=== PATIENT | female | born 1985 | race Caucasian/White ===

== ENCOUNTER 2018-02-17 03:24 | Inpatient (IN) | payer OTHER ==
[2018-02-17] MEDS ORDERED: OLIVE OIL 118 ML BTL MISC PRN (03:36)
[2018-02-17] MEDS ORDERED: AMPICILLIN SODIUM 2 GM in STERILE WATER INJ 25 ML IV ONE (03:36)
[2018-02-17] MEDS ORDERED: LIDOCAINE 1% 300 MG/30 ML SDV SC PRN (03:36)
[2018-02-17] MEDS ORDERED: OXYTOCIN/NORMAL SALINE 1,000 ML IV PRN (03:36)
[2018-02-17] MEDS ORDERED: MISOPROSTOL 200 MCG TAB PR PRN (03:36)
[2018-02-17] MEDS ORDERED: EPSOM SALT 454 GM TP PRN (03:36)
[2018-02-17] MEDS ORDERED: TERBUTALINE SULFATE 1 MG/ML VIAL IV PRN (03:36)
[2018-02-17] MEDS ORDERED: LR 1,000 ML IV PRN (03:36)
[2018-02-17] MEDS ORDERED: AMMONIA AROMATIC 1 EACH AMP IH ONE (03:38)
[2018-02-17] MEDS ORDERED: TERBUTALINE SULFATE 1 MG/ML VIAL ONE (03:38)
[2018-02-17] MEDS ORDERED: LIDOCAINE 1% 300 MG/30 ML SDV ONE (03:38)
[2018-02-17] MEDS ORDERED: MISOPROSTOL 200 MCG TAB ONE (03:38)
[2018-02-17] MEDS ORDERED: OLIVE OIL 118 ML BTL ONE (03:38)
[2018-02-17] MEDS ORDERED: OXYTOCIN 10 UNIT/ML VIAL ONE (03:38)
[2018-02-17 04:12] LABS: PLATELET COUNT 207 10^3/uL (150-400)
--- NOTE | 2018-02-17 04:14 | PDGENHP ---
History and Physical - Chief Complaint labor contractions - History of Present Illness 32 at 40w3d by LMP c/w 8 wk US started having contractions around 2100, after having Conner bulb placed in the office yesterday afternoon. Elective induction. course uncomplicated. Good FM, no LOF, some bloody show. NO ssx PIH. care with [facility] since 8 weeks. Had epidural with her first, labored for 18 hours, pushed for 20 min. Thinks this baby might be a little bit bigger. Is considering an epidural. labs: GBS POS O pos Ab scre neg 12.5/34.5 plt 191 RPR-NR Rub Imm HebsAG neg HIV neg Genetic carrier Family Prep screen neg Innatal neg pap neg GC neg 28 wk: 11.8/33.2 1 hr GTT 111 History Information - Allergies/Home Medication List Allergies/Adverse Reactions: No Known Allergies Allergy (Unverified 09/07/15 17:54) Home Medications: Vit27&Calcium/Iron/FA [] 1 each PO DAILY 09/07/15 [Last Taken 09/06/15] I have personally reviewed and updated: family history, medical history, social history, surgical history Past Medical History: pp depression. headaches - Surgical History Additional surgical history: LEEP 2004. R knee surgery 2005. wisdom teeth - Family History Additional family history: mother from ovarian cancer at 64 - pt had genetic risk testing done and was negative - Social History Smoking Status: Never smoked Alcohol Use: None Drug Use: None Additional social history: - [place], in attendance Review of Systems Review of Systems: ROS: 10pt was reviewed & negative except for what was stated in HPI & below Physical Exam Physical Exam: Gen - pleasant, NAD when not michela CV -RRR chest - CTAB abd - gravid ext - NT, trace edema SVE per RN - 7/50/-1 FHR - 130, reactive, Cat 1, mod variability, + accels toco - q 2-4 min 36.7 119 108/72 Constitutional: no apparent distress Ears, Nose, Mouth, Throat: moist mucous membranes Cardiovascular: regular rate and rhythym Respiratory: no respiratory distress, no rales or rhonchi Skin: warm, normal color Musculoskeletal: full muscle strength Neurologic: sensation intact bilaterally Psychiatric: interacting appropriately Assessment & Plan Assessment: 32 yo at 40w3d in active labor - Conner bulb for elective induction now out. GBS positive Rub Imm O pos Plan - Admit, Amp for GBS positive, expectant mgmt, anticipate vag delivery, OK for epidural as desired. Tricia Clark MD, FACOG
--- NOTE | 2018-02-17 05:09 | OBPROG ---
Labor Progress Note Assessment/Plan: Assessment:32 yo multip in active labor - AROM performed GBS pos - first dose of amp in at 0400. Plan:Expectant mgmt - going to try nitrous now for pain control Tricia Clark MD, FACOG 02/17/18 05:05 Subjective/Intrapartum Course: Was in the tub, desires AROM. 02/17/18 05:06 Objective: 02/17/18 03:45 Patient ABO/Rh O POSITIVE 02/17/18 03:45 SVE - 7-8/80/-2 AROM performed - clear - SVE Dilation (cm): 8 Effacement (%): 80 Station: -2 Membranes: AROM Amniotic Fluid Color: Clear - Contraction Pattern Assessment Current Contraction Pattern: Regular - Procedures Non-surgical Procedures: Amniotomy - AP Antepartum Course: 02/17/18 05:10 Uncomplicated course. Oxytocin Orders Assessment - Pre-Induction/Augmentation Assessment Gestational Age: 40 week(s) and 3 day(s) ICD10 Worksheet Patient Problems: Problems Problem Status Onset Elective induction of labor planned Acute (spontaneous vaginal delivery) Acute
[2018-02-17] MEDS ORDERED: fentaNYL 200 MCG, BUPIVACAINE 0.5% 20 ML in NS 100 ML EP SCH (05:30)
[2018-02-17] MEDS ORDERED: fentaNYL 100 MCG/2 ML INJ ONE (05:39)
[2018-02-17] MEDS ORDERED: PHENYLEPHRINE HCL 100 MCG/ML SYR ONE (05:40)
[2018-02-17] MEDS ORDERED: BUPIVACAINE 0.25% 30 ML SDV ONE (05:40)
--- NOTE | 2018-02-17 06:20 | OBPROG ---
Labor Progress Note Assessment/Plan: Assessment:32 yo multip in active labor - AROM performed GBS pos - first dose of amp in at 0400. Plan:Expectant mgmt - going to try nitrous now for pain control Tricia Clark MD, FACOG 02/17/18 05:05 02/17/18 06:16 A/P: 32 yo , active labor, s/p AROM, GBS pos- first dose amp at 0400. Now getting epidural -some difficulty getting her comfortable on both sides. Anesthesia - Dr. An currently at bedside. Tricia Clark MD, FACOG Subjective/Intrapartum Course: Was in the tub, desires AROM. 02/17/18 05:06 02/17/18 06:18 After AROM - requested epidural. Objective: 02/17/18 03:45 Patient ABO/Rh O POSITIVE 02/17/18 03:45 - SVE Membranes: AROM Amniotic Fluid Color: Clear - Contraction Pattern Assessment Current Contraction Pattern: Regular - FHR Assessment Bruce FHR (bpm): 130 FHR Pattern Variability: Moderate FHR Category: 1 - Procedures Non-surgical Procedures: Amniotomy - AP Antepartum Course: 02/17/18 05:10 Uncomplicated course. Oxytocin Orders Assessment - Pre-Induction/Augmentation Assessment Gestational Age: 40 week(s) and 3 day(s) ICD10 Worksheet Patient Problems: Problems Problem Status Onset Elective induction of labor planned Acute (spontaneous vaginal delivery) Acute
--- NOTE | 2018-02-17 06:26 | PREANESOB ---
Obstetric Pre-Anesthesia Info - General Info Proposed Procedure: PCEA : 2 Para: 1 RACHELLE: 02/14/18 Gestational Age: 40 week(s) and 3 day(s) - Labor Status Cervical Dilation per last OB SVE: 8 Station per last OB SVE: -2 Amniotic Fluid Color: Clear Anesthesia Allergies/Adverse Reactions: Allergy/AdvReac Type Severity Reaction Status Date / Time No Known Allergies Allergy Unverified 09/07/15 17:54 Home Medications: Medication Instructions Recorded Vit27&Calcium/Iron/FA 1 each PO DAILY 09/07/15 [] Docusate Sodium [Colace 100 MG (*)] 100 mg PO BID PRN #0 cap 09/11/15 HYDROmorphone HCL [Dilaudid 2 mg 2 mg PO Q4 PRN #14 tab 09/11/15 (*)] Ibuprofen [Motrin (*)] 600 mg PO Q6 PRN #0 tab 09/11/15 Visit Medications: Generic Name Dose Route Start Last Admin Trade Name Freq PRN Reason Stop Dose Admin Ampicillin Sodium 1 gm/ 15 mls @ 60 mls/hr 02/17/18 08:00 Sterile Water IV 03/19/18 07:59 Q4H ASHLEY Protocol Lactated Ringer's 1,000 mls @ 0 mls/hr 02/17/18 03:36 Lr IV 02/18/18 03:35 PRN PRN SEE PROTOCOL CONDITIONS Protocol Per Protocol Oxytocin/Sodium Chloride 1,000 mls @ 0 mls/hr 02/17/18 03:36 Pitocin 20 Units/Ns (Premix) IV PRN PRN Post Bleeding As Directed Fentanyl 200 mcg/ Bupivacaine 100 mls @ 0 mls/hr 02/17/18 05:30 HCl 20 ml/ Sodium Chloride EP 02/27/18 05:29 CONT ASHLEY Protocol As Directed Ibuprofen 600 mg 02/17/18 03:36 Motrin PO 08/16/18 03:35 Q6HRS PRN post , inflammation Lidocaine HCl 300 mg 02/17/18 03:36 Lidocaine Hcl 1% SC 08/16/18 03:35 ONCE PRN episiotomy Magnesium Sulfate 454 gm 02/17/18 03:36 Epsom Salt TP 08/16/18 03:35 Q1H PRN perineal discomfort Misoprostol 800 - 1,000 mcg 02/17/18 03:36 Cytotec [place] ONCE PRN Vaginal Atony/Bleeding [place]land Oil 118 ml 02/17/18 03:36 Sweet Oil MISC 08/16/18 03:35 ONCE PRN perineal massage Terbutaline Sulfate 0.25 mg 02/17/18 03:36 Brethine IV 08/16/18 03:35 ONCE PRN Tachysystole Discontinued Medications Generic Name Dose Route Start Last Admin Trade Name Freq PRN Reason Stop Dose Admin Ammonia (Aromatic Spirit) Confirm 02/17/18 03:38 Ammonia Aromatic Administered 02/17/18 03:39 Dose 1 each IH .STK-MED ONE Bupivacaine HCl Confirm 02/17/18 05:40 Sensorcaine 0.25% Sdv Administered 02/17/18 05:41 Dose 30 ml .ROUTE .STK-MED ONE Fentanyl Confirm 02/17/18 05:39 Sublimaze Administered 02/17/18 05:40 Dose 100 mcg .ROUTE .STK-MED ONE Ampicillin Sodium 2 gm/ 25 mls @ 100 mls/hr 02/17/18 03:36 02/17/18 04:01 Sterile Water IV 02/17/18 03:50 25 mls ONCE ONE Administration Protocol Lidocaine HCl Confirm 02/17/18 03:38 Lidocaine Hcl 1% Administered 02/17/18 03:39 Dose 300 mg .ROUTE .STK-MED ONE Misoprostol Confirm 02/17/18 03:38 Cytotec Administered 02/17/18 03:39 Dose 1,000 mcg .ROUTE .STK-MED ONE Midland Oil Confirm 02/17/18 03:38 Sweet Oil Administered 02/17/18 03:39 Dose 118 ml .ROUTE .STK-MED ONE Oxytocin Confirm 02/17/18 03:38 Pitocin Administered 02/17/18 03:39 Dose 40 unit .ROUTE .STK-MED ONE Phenylephrine HCl Confirm 02/17/18 05:40 Neosynephrine Administered 02/17/18 05:41 Dose 1,000 mcg .ROUTE .STK-MED ONE Terbutaline Sulfate Confirm 02/17/18 03:38 Brethine Administered 02/17/18 03:39 Dose 1 mg .ROUTE .STK-MED ONE - Vital Signs Height/Weight (Nursing): Height 165.1 cm Weight 79.832 kg - Focused Exam Neck exam: FROM Mallampati Score: Class 1 Mouth exam: normal dental/mouth exam Labs: 02/17/18 03:45 Patient ABO/Rh O POSITIVE 02/17/18 03:45 - Plan Anesthetic Plan: PCEA Consent Signed and on Chart: Yes
[2018-02-17] MEDS ORDERED: PHENYLEPHRINE HCL 100 MCG/ML SYR IVP PRN (06:27)
--- NOTE | 2018-02-17 06:29 | POSTANESTH ---
Post Anesthetic Evaluation Cardiovascular Status: Similar to Pre-Op Cond Respiratory Status: Similar to Pre-op Cond. Level of Consciousness/Mental Status: Can Participate in Eval Pain Control: Adequate, Prn Tx Ordered Nausea/Vomiting Control: Adequate, Prn Tx Ordered Complications Possibly Related to Anesthesia: None Noted
[2018-02-17] MEDS ORDERED: LR 500 ML IV SCH (06:30)
[2018-02-17] MEDS ORDERED: fentaNYL 2MCG/ML/BUP 0.1% RTU 100 ML EP SCH (06:30)
[2018-02-17] MEDS: AMPICILLIN SODIUM 1 GM in STERILE WATER INJ 15 ML IV SCH ×2 (07:25→18:30)
--- NOTE | 2018-02-17 08:44 | OBDEL ---
Info Type: Vaginal Presentation at Delivery: Vertex L&D Analgesia/Anesthesia Type: Epidural GBS+: Yes Antibiotic Used for + GBS: Ampicillin (2 doses) Intrapartum Medications: Generic Name Dose Route Start Last Admin Trade Name Archana PRN Reason Stop Dose Admin Ampicillin Sodium 1 gm/ 15 mls @ 60 mls/hr 02/17/18 07:15 02/17/18 07:25 Sterile Water IV 03/19/18 07:14 15 mls Q4H ASHLEY Administration Protocol Discontinued Medications Generic Name Dose Route Start Last Admin Trade Name Freq PRN Reason Stop Dose Admin Ampicillin Sodium 2 gm/ 25 mls @ 100 mls/hr 02/17/18 03:36 02/17/18 04:01 Sterile Water IV 02/17/18 03:50 25 mls ONCE ONE Administration Protocol - Hospital Course Intrapartum: Was in the tub, desires AROM. 02/17/18 05:06 02/17/18 06:18 After AROM - requested epidural. Indications for Delivery: Elective (Labored after mcclain bulb placed in office) Vaginal Delivery - Delivery Provider Delivery Physician/CNM: Doreen Mejia Proctoring Provider: Cici Wilkerson - Labor and Delivery Onset of Contractions Date: 02/16/18 Onset of Contractions Time: 21:30 Onset of Contractions Type: Induced (mcclain bulb) Rupture of Membranes Date: 02/17/18 Rupture of Membranes Time: 05:05 Rupture of Membranes Type: Artificial Amniotic Fluid Color: Clear Dilation Complete Date: 02/17/18 Dilation Complete Time: 06:36 Placenta Delivery Date: 02/17/18 Placenta Delivery Time: 08:14 Total Hours of Labor: 10 Non-surgical Procedures: Amniotomy Vaginal Sponge Count Correct: Yes Vaginal Needle Count Correct: Yes EBL: 150 Delivery Events: None - Medications Labor Augmentation/Induction Methods Used: Mcclain Bulb Labor Augmentation/Induction Indication: Elective Data RACHELLE: 02/14/18 Gestational Age: 40 week(s) and 3 day(s) Bruce Sex of : Male Score (1 Min): 8 Score (5 Min): 9 ICD10 Worksheet Patient Problems: Problems Problem Status Onset Elective induction of labor planned Acute (spontaneous vaginal delivery) Acute
[2018-02-17] MEDS ORDERED: DOCUSATE SODIUM 100 MG CAP PO PRN (08:46)
[2018-02-17] MEDS ORDERED: HYDROCORTISONE 0.5% CREAM TP PRN (08:46)
[2018-02-17] MEDS ORDERED: SIMETHICONE 80 MG TAB CHEW PO PRN (08:46)
[2018-02-17] MEDS ORDERED: ACETAMINOPHEN 325 MG TAB PO PRN (08:46)
[2018-02-17] MEDS ORDERED: HYDROCODONE/APAP 5/325 TAB PO PRN (08:46)
[2018-02-17] MEDS: IBUPROFEN 600 MG TAB PO PRN ×3 (08:57→21:47)
[2018-02-18] MEDS: IBUPROFEN 600 MG TAB PO PRN (03:47)
[2018-02-18 09:03] VITALS: BP 98/65
--- NOTE | 2018-02-18 11:52 | OBPP ---
Progress Note Assessment/Plan: Assessment: PPD1 s/p at 0800 yesterday AM - now . GBS pos - Rec'd adequate abx, Peds has discharged baby, so we're good with mom going home. Reviewed H/H this AM, rec'd PO Fe supps, says she has those at home and will try to take them. Will get script for Terazol 3 prophylactically. F/u 4 and 6 wks -- Rubella immune, Rh pos. JM Subjective/ Course: 02/18/18 11:52 Had a great night, BF going well, would like to go home today if possible. Pain controlled no narcs. Objective: 02/18/18 04:00 Patient ABO/Rh O POSITIVE 02/17/18 03:45 Temp Pulse Resp BP Pulse Ox 35.9 C L 80 16 98/65 L 98 02/18/18 08:00 02/18/18 08:00 02/18/18 08:00 02/18/18 08:00 02/18/18 08:00 Uterine Position/Fundal Height: At Umbilicus Uterine Tone: Firm
--- NOTE | 2018-02-18 11:54 | OBGCSDC ---
General Delivery Information - General Info : 2 Para: 2 Abortions: 0 Type: Vaginal L&D Analgesia/Anesthesia Type: Epidural, Nitrous Admission Date: 02/17/18 Labs: Patient ABO/Rh O POSITIVE 02/17/18 03:45 Hct 32.5 % (38.0-47.0) L 02/18/18 04:00 - Hospital Course Antepartum: 02/17/18 05:10 Uncomplicated course. Intrapartum: Was in the tub, desires AROM. 02/17/18 05:06 02/17/18 06:18 After AROM - requested epidural. : 02/18/18 11:52 Had a great night, BF going well, would like to go home today if possible. Pain controlled no narcs. Vaginal - Delivery Provider Delivery Physician/CNM: Doreen Mejia - Diagnosis Labor: Induced (mcclain bulb) Rupture of Membranes Type: Artificial Amniotic Fluid Color: Clear Delivery Events: None - Procedures Non-surgical Procedures: Amniotomy - Delivery Non-surgical Procedures: Amniotomy EBL: 150 [place] Data RACHELLE: 02/14/18 Gestational Age: 40 week(s) and 4 day(s) Bruce Delivery Date: 02/17/18 Delivery Time: 08:09 Sex of Infant: Male [place] Weight (gm): 3372 g Score (1 Min): 8 Score (5 Min): 9 Discharge Information - Discharge Information Prescriptions: Terconazole [Terazol 7] 45 gm VG DAILY 7 Days #7 cream.appl Condition: Good Instruction/Follow Up: See Instruction Sheet, Four Weeks, Six Weeks
== END 2018-02-18 12:54 | disposition home or self-care (01) | DRG 775 ==
LOC: FLD 03:24 → FOB 11:19
PROVIDERS: ADMIT Hospitalist; ATTEND Hospitalist
DX: O48.0 Post-term pregnancy (principal); O99.820 Streptococcus B carrier state complicating pregnancy; Z3A.40 40 weeks gestation of pregnancy; Z37.0 Single live birth
CPT/HCPCS: J0290; J2370; J2590; J3010; J3105